=== PATIENT | female | born 1970 ===

== ENCOUNTER 2020-09-08 10:42 | Emergency (ER) | payer OTHER ==
[~2020-09-08] VITALS: Ht 144.8 cm; Wt 58.1 kg
[2020-09-08] MEDS ORDERED: METOCLOPRAMIDE10 MG PO (14:59)
[2020-09-08] MEDS ORDERED: MOTION SICKNESS25 M1 PO (14:59)
== END 2020-09-08 16:43 ==
LOC: ER 10:42
DX: H81.13 Benign paroxysmal vertigo, bilateral (principal); Z11.52 Encounter for screening for COVID-19

== ENCOUNTER 2021-03-22 14:18 | Outpatient (CLI) | payer OTHER ==
[~2021-03-22 14:18] MED LIST: METOCLOPRAMIDE10 MG PO; MOTION SICKNESS25 M1 PO
== END 2021-03-24 13:46 | disposition home or self-care (01) ==
LOC: MAMO-SONO 14:18
PROVIDERS: ATTEND Surgery
DX: C50.511 Malignant neoplasm of lower-outer quadrant of right female breast (principal); N63.0 Unspecified lump in unspecified breast; Z12.31 Encounter for screening mammogram for malignant neoplasm of breast

== ENCOUNTER 2021-04-14 08:36 | Outpatient (CLI) | payer OTHER | END 2021-04-14 08:38 | disposition home or self-care (01) | LOC: NUCLEAR 08:36 | PROVIDERS: ATTEND Internal Medicine Hematology & Oncology | DX: C50.511 Malignant neoplasm of lower-outer quadrant of right female breast (principal) | CPT/HCPCS: 78803; A9503 ==

== ENCOUNTER 2024-05-19 12:07 | Emergency (ER) | payer OTHER ==
[~2024-05-19] VITALS: Ht 165.1 cm; Wt 68.0 kg
[2024-05-19 12:26] VITALS: BP 143/77; O2SAT 100
[2024-05-19] MEDS ORDERED: DEXAMETHASONE SODIUM PHOSPHATE 4 MG/ML VIAL IV STA (13:11)
[2024-05-19] MEDS ORDERED: 0.9 % SODIUM CHLORIDE 1,000 ML IV STA (13:12)
[2024-05-19] MEDS ORDERED: PROMETHAZINE HCL 50 MG/ML AMPUL IM ONE ×2 (13:15→13:44)
[2024-05-19] MEDS ORDERED: DEXAMETHASONE SODIUM PHOSPHATE 4 MG/ML VIAL ONE (13:44)
[2024-05-19 14:41] LABS: HEMATOCRIT 39.6 % (36.0-45.00); MEAN CELL VOLUME 74.6 fL (80.00-100.00); MEAN CORPUSCULAR HEMOGLOBIN 24.5 pg (27.00-32.0); MEAN CORPUSCULAR HGB CONC 32.9 g/dl (32.0-36.0); PLATELET COUNT 398 K/uL (150-450); RED BLOOD COUNT 5.31 M/uL (4.00-6.00); RED CELL DISTRIBUTION WIDTH 15.5 % (11.5-14.5)
[2024-05-19 14:52] LABS: ALKALINE PHOSPHATASE 96 U/L (50-136); ALT/SGPT 34 U/L (12-78); ANION GAP 11 (10.0-20.0); AST/SGOT 40 U/L (15-37); BILIRUBIN TOTAL 0.36 mg/dL (0.3-1.2); BLOOD UREA NITROGEN 11 mg/dL (7-18); BUN CREA RATIO 14 (7.0-25.0); CALCIUM 8.7 mg/dL (8.5-10.1); CARBON DIOXIDE 27 mEq/L (21-32); CHLORIDE 104 mmol/L (98-107); GFR 74.47; GLUCOSE FASTING 155 mg/dL (65-100); OSMOLALITY SERUM 280 MOSM/KG (275-295); SODIUM 139 mmol/L (136-145); TOTAL PROTEIN 8.2 gm/dL (6.4-8.2)
[2024-05-19 15:22] LABS: BILIRUBIN,CONJUGATED < 0.10 mg/dL (0.0-0.2); BILIRUBIN,UNCONJUGATED 0.26 mg/dL (0.0-0.6)
[2024-05-19] MEDS ORDERED: DRAMAMINE LESS25 MG PO (19:18)
== END 2024-05-19 19:31 | disposition home or self-care (01) ==
LOC: ER 12:07
PROVIDERS: General Practice
DX: R42 Dizziness and giddiness (principal); R11.10 Vomiting, unspecified